=== PATIENT | male | born 1955 | race Caucasian/White ===

== ENCOUNTER 2016-08-08 14:15 | Emergency (ER) | payer MEDICARE ==
[~2016-08-08] VITALS: Ht 180.3 cm; Wt 118.0 kg
[~2016-08-08 14:15] MED LIST: ASPI81 PO; BUPR100T13 PO; INSLAN SQ; INSU100V3 IJ; METF10002 PO; MOME13HF IH; MONT10TA21 PO; PROP20 PO; ROSU10 PO; ROSU20 PO; TOPI25 PO; VALS40TA4 PO
[2016-08-08 14:36] LABS: GLUCOSE,POINT OF CARE 296 MG/DL (70-110)
[2016-08-08] MEDS ORDERED: ATEN50TA PO (14:49)
[2016-08-08] MEDS ORDERED: INSU300I SQ (14:49)
[2016-08-08] MEDS ORDERED: OMAL150V PO (14:49)
[2016-08-08] MEDS ORDERED: DULA1.5P SQ (14:50)
[2016-08-08] MEDS ORDERED: SODIUM CHLORIDE 0.9% 1,000 ML IV ONE (15:30)
[2016-08-08] MEDS ORDERED: ONDANSETRON HCL 4 MG/2 ML VIAL IVP ONE (15:30)
[2016-08-08 15:41] LABS: BASOPHILS % (AUTO) 0.2 % (0.0-2.0); EOSINOPHILS % (AUTO) 0.2 % (1.0-6.0); HEMATOCRIT 46.1 % (41-53); LYMPHOCYTES # (AUTO) 2.8 K/uL (1.0-4.8); LYMPHOCYTES % (AUTO) 17.4 % (22.0-44.0); MEAN CORPUSCULAR HEMOGLOBIN 28.3 pg (26.0-34.0); MEAN CORPUSCULAR HGB CONC 32.5 G/dL (31.0-37.0); MEAN CORPUSCULAR VOLUME 87 fL (80-100); MONOCYTES # (AUTO) 0.6 K/uL (0.1-1.0); MONOCYTES % (AUTO) 3.8 % (2.0-9.0); NEUTROPHILS # (AUTO) 12.5 K/uL (1.8-7.7); NEUTROPHILS % (AUTO) 78.4 % (40.0-70.0); PLATELET COUNT (AUTO) 360 K/uL (150-450); RED CELL DISTRIBUTION WIDTH 13.8 % (11.5-14.5); WHITE BLOOD COUNT (AUTO) 15.9 K/uL (4.5-11.0)
[2016-08-08 15:52] LABS: CREATININE 1.59 mg/dL (0.60-1.30); POTASSIUM 4.5 mmol/L (3.5-5.1)
[2016-08-08 16:10] LABS: ALBUMIN 3.8 g/dL (3.4-5.0); BILIRUBIN,TOTAL 0.5 mg/dL (0.1-1.0); TOTAL PROTEIN, SERUM 8.4 g/dL (6.4-8.2)
[2016-08-08] MEDS ORDERED: KETOROLAC TROMETHAMINE 30 MG/ML VIAL IVP ONE (16:15)
[2016-08-08] MEDS ORDERED: ACETAMINOPHEN 1000 MG/ISO-OSM 100 ML IV ONE (17:00)
[2016-08-08 17:34] VITALS: BP 142/89
== END 2016-08-08 17:37 | disposition home or self-care (01) ==
LOC: EMS 14:16
DX: J18.0 Bronchopneumonia, unspecified organism (principal); J45.909 Unspecified asthma, uncomplicated; E11.9 Type 2 diabetes mellitus without complications; E78.00 Pure hypercholesterolemia, unspecified; I10 Essential (primary) hypertension; G47.30 Sleep apnea, unspecified; G43.909 Migraine, unspecified, not intractable, without status migrainosus; L40.9 Psoriasis, unspecified; Z88.8 Allergy status to other drugs, medicaments and biological substances
CPT/HCPCS: 36415; 71020; 80053; 82962; 83690; 85025; 96361; 96374; 96375; 99285; J0131; J1885; J2405; J7030

== ENCOUNTER 2016-08-19 09:00 | Inpatient (IN) | payer MEDICARE ==
[2016-08-19] VITALS (11 sets, daily range): BP systolic 91–122; BP diastolic 54–78
[~2016-08-19] VITALS: Ht 182.9 cm; Wt 123.0 kg
[~2016-08-19 09:00] MED LIST changes: -ASPI81 PO; +ATEN50TA PO; -BUPR100T13 PO; +DULA1.5P SQ; -INSLAN SQ; -INSU100V3 IJ; +INSU300I SQ; -MOME13HF IH; +OMAL150V PO; -PROP20 PO; -ROSU10 PO; -ROSU20 PO; -TOPI25 PO; -VALS40TA4 PO
[2016-08-19 09:17] LABS: GLUCOSE,POINT OF CARE 160 MG/DL (70-110)
[2016-08-19] MEDS ORDERED: MECLIZINE HCL 25 MG TABLET PO ONE (12:00)
[2016-08-19] MEDS ORDERED: LEVOFLOXACIN 500 MG TABLET PO ONE (12:00)
[2016-08-19] MEDS ORDERED: PredniSONE 20 MG TABLET PO ONE (12:00)
[2016-08-19 12:33] LABS: BASOPHILS % (AUTO) 0.3 % (0.0-2.0); EOSINOPHILS % (AUTO) 0.5 % (1.0-6.0); HEMATOCRIT 39.9 % (41-53); HEMOGLOBIN 12.9 g/dL (13.5-17.5); LYMPHOCYTES # (AUTO) 2.3 K/uL (1.0-4.8); LYMPHOCYTES % (AUTO) 15.1 % (22.0-44.0); MEAN CORPUSCULAR HGB CONC 32.2 G/dL (31.0-37.0); MEAN CORPUSCULAR VOLUME 87 fL (80-100); MONOCYTES % (AUTO) 6.8 % (2.0-9.0); NEUTROPHILS # (AUTO) 11.8 K/uL (1.8-7.7); NEUTROPHILS % (AUTO) 77.3 % (40.0-70.0); PLATELET COUNT (AUTO) 329 K/uL (150-450); RED BLOOD CELL COUNT(AUTO) 4.59 MIL/uL (4.50-5.90); RED CELL DISTRIBUTION WIDTH 13.5 % (11.5-14.5); WHITE BLOOD COUNT (AUTO) 15.3 K/uL (4.5-11.0)
[2016-08-19 12:43] LABS: CALCIUM, TOTAL 8.8 mg/dL (8.8-10.5); CREATININE 1.24 mg/dL (0.60-1.30); POTASSIUM 4.8 mmol/L (3.5-5.1)
[2016-08-19] MEDS ORDERED: HEPARIN SODIUM 25000 UNITS/D5W 250 ML IV PRN (13:08)
[2016-08-19 13:09] LABS: ALBUMIN 3.1 g/dL (3.4-5.0); BILIRUBIN,TOTAL 0.6 mg/dL (0.1-1.0); TOTAL PROTEIN, SERUM 6.8 g/dL (6.4-8.2)
[2016-08-19] MEDS ORDERED: ASPIRIN 325 MG TABLET PO ONE (13:15)
[2016-08-19] MEDS ORDERED: ASPIRIN 81 MG CHEWABLE TABLET PO ONE (13:15)
[2016-08-19] MEDS ORDERED: SODIUM CHLORIDE 0.9% 1,000 ML IV ONE (13:15)
[2016-08-19] MEDS ORDERED: HEPARIN SODIUM,PORCINE 5,000 UNITS/ML VIAL IVP PRN ×2 (13:15)
[2016-08-19] MEDS ORDERED: HEPARIN SODIUM,PORCINE 5,000 UNITS/ML VIAL IVP ONE ×3 (13:15→15:15)
[2016-08-19] MEDS ORDERED: ATORVASTATIN CALCIUM 40 MG TABLET PO ONE (13:15)
[2016-08-19 13:37] LABS: PROTHROMBIN TIME 10.6 SEC (9.4-11.6)
[2016-08-19] MEDS ORDERED: SODIUM BICARBONATE 50 MEQ/50 ML VIAL ONE (14:52)
[2016-08-19] MEDS ORDERED: LIDOCAINE HCL/PF 1% 30 ML VIAL ONE (14:52)
[2016-08-19] MEDS ORDERED: HEPARIN SODIUM 1000 UNITS/NS 1,000 ML ONE (14:53)
[2016-08-19] MEDS ORDERED: IOHEXOL 300 MG/ML 150 ML VIAL ONE (14:53)
[2016-08-19] MEDS ORDERED: IOHEXOL 300 MG/ML 50 ML VIAL ONE (15:00)
[2016-08-19] MEDS ORDERED: FentaNYL CITRATE-PF 100 MCG/2 ML VIAL ONE (15:01)
[2016-08-19] MEDS ORDERED: MIDAZOLAM HCL 2 MG/2 ML VIAL ONE (15:01)
[2016-08-19] MEDS ORDERED: HEPARIN SODIUM 1000 UNITS/NS 1,000 ML IARTER ONE (15:04)
[2016-08-19] MEDS ORDERED: SODIUM CHLORIDE 0.9% 500 ML IV ONE (15:04)
[2016-08-19] MEDS ORDERED: IOHEXOL 300 MG/ML 100 ML VIAL ONE (15:09)
[2016-08-19] MEDS ORDERED: IOHEXOL 300 MG/ML 150 ML VIAL IARTER ONE (15:15)
[2016-08-19] MEDS ORDERED: FentaNYL CITRATE-PF 100 MCG/2 ML VIAL IVP ONE (15:15)
[2016-08-19] MEDS ORDERED: MIDAZOLAM HCL 2 MG/2 ML VIAL IVP ONE (15:15)
[2016-08-19] MEDS ORDERED: LIDOCAINE 1% 30 ML/SOD BICARB 8.4% 4 ML SQ ONE (15:15)
[2016-08-19] MEDS ORDERED: DEXTROSE 50%-WATER 25 GM/50 ML SYRINGE IVP PRN ×2 (15:45→17:00)
[2016-08-19] MEDS ORDERED: CLOPIDOGREL BISULFATE 300 MG TABLET PO ONE (15:45)
[2016-08-19] MEDS ORDERED: CLOPIDOGREL BISULFATE 300 MG TABLET ONE (16:08)
[2016-08-19] MEDS ORDERED: ONDANSETRON HCL 4 MG/2 ML VIAL IVP PRN (16:45)
[2016-08-19] MEDS ORDERED: MAGNESIUM HYDROXIDE SUSPENSION 30 ML UDCUP PO PRN (16:45)
[2016-08-19] MEDS ORDERED: MORPHINE SULFATE 2 MG/ML SYRINGE IVP PRN (16:45)
[2016-08-19] MEDS ORDERED: ALBUTEROL SULFATE 2.5 MG/0.5 ML NEB SOLUTION NEB PRN (16:45)
[2016-08-19] MEDS ORDERED: ACETAMINOPHEN 325 MG TABLET PO PRN (16:45)
[2016-08-19] MEDS ORDERED: INSULIN ASPART 100 UNITS/ML SQ PRN (17:00)
[2016-08-19] MEDS: INSULIN ASPART 100 UNITS/ML SQ PRN ×2 (17:55→20:58)
[2016-08-19] MEDS: DOCUSATE SODIUM 100 MG CAPSULE PO SCH (20:46)
[2016-08-19] MEDS ORDERED: ATORVASTATIN CALCIUM 40 MG TABLET PO SCH (21:00)
[2016-08-19 23:42] LABS: GLUCOSE COMMENT 1 Received Meds; GLUCOSE,POINT OF CARE 177 MG/DL (70-110)
[2016-08-19 23:42] LABS: GLUCOSE,POINT OF CARE 231 MG/DL (70-110)
[2016-08-20] MEDS: HEPARIN SODIUM,PORCINE 5,000 UNITS/ML VIAL SQ SCH ×3 (01:45→17:21)
[2016-08-20 04:15] VITALS: BP 101/50
[2016-08-20] MEDS: INSULIN ASPART 100 UNITS/ML SQ PRN ×4 (05:51→20:57)
[2016-08-20 07:06] LABS: ANION GAP 9 mmol/L (8-16); CALCIUM, TOTAL 8.6 mg/dL (8.8-10.5); CARBON DIOXIDE 26 mmol/L (22-29); CHLORIDE 103 mmol/L (98-107); CREATINE KINASE, TOTAL 957 U/L (39-308); CREATININE 1.09 mg/dL (0.60-1.30); GLOMERULAR FILTR. RATE CALC > 60 mL/min (>60); POTASSIUM 4.3 mmol/L (3.5-5.1); SODIUM SERUM 138 mmol/L (136-145); UREA NITROGEN, BLOOD 17 mg/dL (7-18)
[2016-08-20 07:10] LABS: BASOPHILS # (AUTO) 0.01 K/uL (0.00-0.20); BASOPHILS % (AUTO) 0.1 % (0.0-2.0); EOSINOPHILS % (AUTO) 0.02 % (1.0-6.0); HEMATOCRIT 38.3 % (41-53); HEMOGLOBIN 12.7 g/dL (13.5-17.5); LYMPHOCYTES # (AUTO) 2.1 K/uL (1.0-4.8); LYMPHOCYTES % (AUTO) 15.7 % (22.0-44.0); MEAN CORPUSCULAR HEMOGLOBIN 28.5 pg (26.0-34.0); MEAN CORPUSCULAR HGB CONC 33.1 G/dL (31.0-37.0); MEAN CORPUSCULAR VOLUME 86 fL (80-100); MONOCYTES # (AUTO) 1.1 K/uL (0.1-1.0); MONOCYTES % (AUTO) 8.2 % (2.0-9.0); NEUTROPHILS # (AUTO) 10.2 K/uL (1.8-7.7); NEUTROPHILS % (AUTO) 76.1 % (40.0-70.0); PLATELET COUNT (AUTO) 303 K/uL (150-450); RED BLOOD CELL COUNT(AUTO) 4.45 MIL/uL (4.50-5.90); RED CELL DISTRIBUTION WIDTH 14.3 % (11.5-14.5); WHITE BLOOD COUNT (AUTO) 13.4 K/uL (4.5-11.0)
[2016-08-20 07:23] VITALS: BP 102/68
[2016-08-20 07:32] LABS: GLUCOSE,POINT OF CARE 187 MG/DL (70-110)
[2016-08-20] MEDS: PANTOPRAZOLE SODIUM 40 MG DR TABLET PO SCH (08:16)
[2016-08-20] MEDS: CLOPIDOGREL BISULFATE 75 MG TABLET PO SCH (08:17)
[2016-08-20] MEDS: ASPIRIN 81 MG CHEWABLE TABLET PO SCH (08:18)
[2016-08-20] MEDS: DOCUSATE SODIUM 100 MG CAPSULE PO SCH ×2 (08:19→20:25)
[2016-08-20] MEDS ORDERED: CLOPIDOGREL BISULFATE 75 MG TABLET PO SCH (09:00)
[2016-08-20 11:33] VITALS: BP 105/59
[2016-08-20 12:42] LABS: GLUCOSE COMMENT 1 Received Meds; GLUCOSE,POINT OF CARE 194 MG/DL (70-110)
[2016-08-20 14:23] LABS: APPEARANCE,URINE TURBID (CLEAR); GLUCOSE, URINE (UA) NEGATIVE (NEGATIVE); KETONES,URINE 15 mg/dL (NEGATIVE); LEUKOCYTE ESTERASE ,URINE MODERATE (NEGATIVE); OCCULT BLOOD,URINE LARGE (NEGATIVE); PROTEIN,URINE SEE CONFIRM (NEGATIVE)
[2016-08-20 14:30] LABS: ADD UA MICROSCOPIC YES
[2016-08-20 14:31] LABS: RBC,URINE Full Field /HPF (0-2); SULFOSALICYLIC ACID,URINE 3+ (Negative)
[2016-08-20 14:35] LABS: SQUAMOUS EPITHELIAL CELL,UR Rare /LPF (None Seen)
[2016-08-20 15:31] VITALS: BP 101/69
[2016-08-20] MEDS: MetFORMIN HCL 500 MG TABLET PO SCH (17:21)
[2016-08-20 19:12] VITALS: BP 109/67
[2016-08-20] MEDS ORDERED: ATORVASTATIN CALCIUM 40 MG TABLET PO SCH (21:00)
[2016-08-20 21:21] LABS: GLUCOSE COMMENT 1 Received Meds; GLUCOSE,POINT OF CARE 182 MG/DL (70-110)
[2016-08-20 21:26] LABS: GLUCOSE COMMENT 1 Received Meds; GLUCOSE,POINT OF CARE 302 MG/DL (70-110)
[2016-08-21 00:16] VITALS: BP 99/70
[2016-08-21] MEDS: HEPARIN SODIUM,PORCINE 5,000 UNITS/ML VIAL SQ SCH ×3 (00:42→15:24)
[2016-08-21 04:11] VITALS: BP 107/80
[2016-08-21 06:09] LABS: BASOPHILS % (AUTO) 0.5 % (0.0-2.0); EOSINOPHILS % (AUTO) 0.9 % (1.0-6.0); HEMATOCRIT 36.8 % (41-53); LYMPHOCYTES # (AUTO) 2.7 K/uL (1.0-4.8); LYMPHOCYTES % (AUTO) 25.4 % (22.0-44.0); MEAN CORPUSCULAR HEMOGLOBIN 28.4 pg (26.0-34.0); MEAN CORPUSCULAR HGB CONC 32.6 G/dL (31.0-37.0); MEAN CORPUSCULAR VOLUME 87 fL (80-100); MONOCYTES # (AUTO) 0.9 K/uL (0.1-1.0); MONOCYTES % (AUTO) 8.1 % (2.0-9.0); NEUTROPHILS # (AUTO) 7.1 K/uL (1.8-7.7); NEUTROPHILS % (AUTO) 65.1 % (40.0-70.0); PLATELET COUNT (AUTO) 294 K/uL (150-450); RED BLOOD CELL COUNT(AUTO) 4.24 MIL/uL (4.50-5.90); RED CELL DISTRIBUTION WIDTH 14.3 % (11.5-14.5); WHITE BLOOD COUNT (AUTO) 10.8 K/uL (4.5-11.0)
[2016-08-21] MEDS: INSULIN ASPART 100 UNITS/ML SQ PRN ×2 (06:41→11:51)
[2016-08-21 06:53] LABS: ANION GAP 9 mmol/L (8-16); CALCIUM, TOTAL 8.9 mg/dL (8.8-10.5); CARBON DIOXIDE 26 mmol/L (22-29); CHLORIDE 104 mmol/L (98-107); CREATINE KINASE MB 6.3 ng/mL (0-5); CREATINE KINASE, TOTAL 300 U/L (39-308); CREATININE 1.12 mg/dL (0.60-1.30); GLOMERULAR FILTR. RATE CALC > 60 mL/min (>60); POTASSIUM 4.3 mmol/L (3.5-5.1); SODIUM SERUM 139 mmol/L (136-145); UREA NITROGEN, BLOOD 19 mg/dL (7-18)
[2016-08-21 07:35] VITALS: BP 113/75
[2016-08-21 08:03] LABS: B-TYPE NATRIURETIC PEPTIDE 76 pg/mL (0-100)
[2016-08-21] MEDS: CLOPIDOGREL BISULFATE 75 MG TABLET PO SCH (08:21)
[2016-08-21] MEDS: PANTOPRAZOLE SODIUM 40 MG DR TABLET PO SCH (08:21)
[2016-08-21] MEDS: MetFORMIN HCL 500 MG TABLET PO SCH (08:21)
[2016-08-21] MEDS: DOCUSATE SODIUM 100 MG CAPSULE PO SCH (08:22)
[2016-08-21] MEDS: ASPIRIN 81 MG CHEWABLE TABLET PO SCH (08:22)
[2016-08-21 11:26] VITALS: BP 132/85
[2016-08-21] MEDS ORDERED: 0.9% SODIUM CHLORIDE 5 ML NEB SOLUTION NEB ONE (13:19)
[2016-08-21 13:28] LABS: APPEARANCE,URINE CLOUDY (CLEAR); GLUCOSE, URINE (UA) NEGATIVE (NEGATIVE); KETONES,URINE NEGATIVE (NEGATIVE); LEUKOCYTE ESTERASE ,URINE SMALL (NEGATIVE); OCCULT BLOOD,URINE LARGE (NEGATIVE); PH,URINE 5.5 (5.0-8.0); PROTEIN,URINE TRACE (NEGATIVE)
[2016-08-21 13:30] LABS: ADD UA MICROSCOPIC YES
[2016-08-21 13:34] LABS: RBC,URINE 26-50 /HPF (0-2); SQUAMOUS EPITHELIAL CELL,UR Few /LPF (None Seen)
[2016-08-21] MEDS ORDERED: ASPI-1093 PO (13:46)
[2016-08-21] MEDS ORDERED: ATOR40TA28 PO (13:46)
[2016-08-21] MEDS ORDERED: ALBU8HFA IH (13:46)
[2016-08-21] MEDS ORDERED: CLOP75 PO (13:47)
[2016-08-21] MEDS ORDERED: ATEN25 PO (13:48)
[2016-08-21] MEDS ORDERED: LISI-660 PO (13:49)
[2016-08-21 19:56] LABS: GLUCOSE,POINT OF CARE 178 MG/DL (70-110)
[2016-08-21 20:02] LABS: GLUCOSE COMMENT 1 Received Meds; GLUCOSE,POINT OF CARE 211 MG/DL (70-110)
== END 2016-08-21 15:50 | disposition home or self-care (01) | DRG 247 ==
LOC: EMS 09:04 → ICUN 17:20 → EMS 17:24 → 5N 21:35
PROVIDERS: ADMIT Internal Medicine Interventional Cardiology; ATTEND Internal Medicine Interventional Cardiology
PROC: 4A023N7 Measurement of Cardiac Sampling and Pressure, Left Heart, Percutaneous Approach (ICD-10-PCS; principal; 2016-08-19)
PROC: 027034Z Dilation of Coronary Artery, One Artery with Drug-eluting Intraluminal Device, Percutaneous Approach (ICD-10-PCS; 2016-08-19)
PROC: B2111ZZ Fluoroscopy of Multiple Coronary Arteries using Low Osmolar Contrast (ICD-10-PCS; 2016-08-19)
DX: I21.09 ST elevation (STEMI) myocardial infarction involving other coronary artery of anterior wall (principal); E44.0 Moderate protein-calorie malnutrition; E11.9 Type 2 diabetes mellitus without complications; I25.10 Atherosclerotic heart disease of native coronary artery without angina pectoris; Z68.36 Body mass index [BMI] 36.0-36.9, adult; E66.01 Morbid (severe) obesity due to excess calories; E78.00 Pure hypercholesterolemia, unspecified; J45.909 Unspecified asthma, uncomplicated; I10 Essential (primary) hypertension; G43.909 Migraine, unspecified, not intractable, without status migrainosus; L40.9 Psoriasis, unspecified; G47.30 Sleep apnea, unspecified; Z79.899 Other long term (current) drug therapy; Z79.4 Long term (current) use of insulin; Z95.5 Presence of coronary angioplasty implant and graft; Z87.01 Personal history of pneumonia (recurrent); Z88.5 Allergy status to narcotic agent; Z98.890 Other specified postprocedural states; Z82.5 Family history of asthma and other chronic lower respiratory diseases; Z83.3 Family history of diabetes mellitus; Z82.49 Family history of ischemic heart disease and other diseases of the circulatory system
CPT/HCPCS: 51702; 71020; 82962; 87086; 87147; 92920; 92928; 93005; 93306; 94640; 96361; 96365; 96366; 96372; 96375; 99291; J1644; J2250; J2270; J3010; J3490; J7030; Q9967

== ENCOUNTER 2019-06-13 07:28 | Emergency (ER) | payer MEDICARE ==
[~2019-06-13] VITALS: Ht 182.9 cm; Wt 113.6 kg
[~2019-06-13 07:28] MED LIST changes: +ALBU8HFA IH; +ASPI-1111 PO; +ATEN25TA PO; -ATEN50TA PO; +ATOR40TA28 PO; +CLOP75TA3 PO; +LISI-660 PO; +METF-446 PO; -METF10002 PO
[2019-06-13 07:49] LABS: GLUCOSE,POINT OF CARE 164 MG/DL (70-110)
[2019-06-13] MEDS ORDERED: KETOROLAC TROMETHAMINE 30 MG/ML VIAL IM ONE (09:00)
[2019-06-13] MEDS ORDERED: ONDANSETRON HCL 4 MG/2 ML VIAL IM ONE (09:00)
[2019-06-13] MEDS ORDERED: OSELTAMIVIR PHOSPHATE 75 MG CAPSULE PO ONE (09:00)
[2019-06-13] MEDS ORDERED: AMOX TR/POT CLAV 875 MG/125 MG TABLET PO ONE (09:00)
[2019-06-13 10:35] VITALS: BP 120/70
== END 2019-06-13 10:32 | disposition home or self-care (01) ==
LOC: EMS 07:29
DX: J32.9 Chronic sinusitis, unspecified (principal); I10 Essential (primary) hypertension; E11.9 Type 2 diabetes mellitus without complications; E78.00 Pure hypercholesterolemia, unspecified; J45.909 Unspecified asthma, uncomplicated; Z88.5 Allergy status to narcotic agent; Z79.899 Other long term (current) drug therapy; Z87.891 Personal history of nicotine dependence
CPT/HCPCS: 82962; 93005; 96372; 99283; J1885; J2405